=== PATIENT | female | born 1995 ===

== ENCOUNTER 2020-03-27 17:15 | Inpatient (IN) | payer BC ==
[2020-03-27 18:15] VITALS: BMI 41.7
--- NOTE | 2020-03-27 18:40 | HP ---
Past Medical History - Primary Care Physician PCP:: Guy Muniz - Admission Chief Complaint: Induction of labor for post dates History of Present Illness: 25 yo LMP 06/22/2019, EDC by dates 03/29/2020, by sono 03/17/2020 41 weeks send for Induction of labor Dr Callejas/dr muniz History Source: Patient Limitations to Obtaining History: No Limitations (Obesity) - Past Medical History ...: 3 ...Para: 0 ...Term: 0 ...: 0 ...Spon : 1 ...Induced : 1 ...Living Children: 0 ...Multiple Gestation: 0 ...LMP: 06/22/19 ... Weeks Gestation by Dates: 39.5 ...EDC by Dates: 03/29/20 ...EDC by Sono: 03/17/20 - Past Surgical History Past Surgical History: Yes: None Hx Myomectomy: No Hx Transabdominal Cerclage: No - Smoking History Smoking history: Former smoker Have you smoked in the past 12 months: Yes Aproximately how many cigarettes per day: 20 If you are a former smoker, when did you quit?: june - Alcohol/Substance Use Hx Alcohol Use: No History of Substance Use: reports: None - Social History Usual Living Arrangement: Yes: With Spouse History of Recent Travel: No Home Medications - Allergies Allergies/Adverse Reactions: Allergies Allergy/AdvReac Type Severity Reaction Status Date / Time azithromycin [From Zithromax] Allergy Severe Difficulty Verified 03/27/20 18:15 Breathing - Home Medications Home Medications: Ambulatory Orders Vitamins (Sjr) - 1 tab PO DAILY 03/27/20 Family Medical History Family Hx Cardiac Disorders: Mother Review of Systems - Review of Systems Constitutional: reports: No Symptoms Eyes: reports: No Symptoms HENT: reports: No Symptoms Neck: reports: No Symptoms Cardiovascular: reports: No Symptoms Respiratory: reports: No Symptoms Gastrointestinal: reports: No Symptoms Genitourinary: reports: No Symptoms Breasts: reports: No Symptoms Reported Musculoskeletal: reports: No Symptoms Integumentary: reports: No Symptoms Neurological: reports: No Symptoms Endocrine: reports: No Symptoms Hematology/Lymphatic: reports: No Symptoms Psychiatric: reports: No Symptoms Physical Exam - Maternity Vital Signs: Vital Signs Temperature 98.1 F 08/25/20 17:53 Pulse Rate 90 03/27/20 17:53 Respiratory Rate 18 03/27/20 17:53 Blood Pressure 126/74 03/27/20 17:53 O2 Sat by Pulse Oximetry (%) Constitutional: Yes: Well Nourished, No Distress, Obese Eyes: Yes: WNL HENT: Yes: WNL Neck: Yes: WNL Cardiovascular: Yes: WNL Breast(s): Yes: WNL - Abdominal Exam/OB Fundal Height: 40 Number of Fetuses: Single Presentation: Vertex Contractions: Yes Regularity: Irritability Intensity: Unaware Monitor Mode: External Heart Rate (range): 140 Heart Rate Location: [facility] Category: I Accelerations: Uniform Decelerations: None - Vaginal Exam/OB Vaginal Bleeding: No Dilatation (cm): 2 Effacement (%): 90 Amniotic Membrane Status: Intact Station: -1 - Physical Exam Musculoskeletal: Yes: WNL Extremities: Yes: WNL Integumentary: Yes: WNL Deep Tendon Reflex Grade: Normal +2 ...Motor Strength: WNL Psychiatric: Yes: WNL Hemorrhage Risk Assessment - Risk Factors Risk Score: 1 Risk Level: Medium Risk Problem List - Problems (1) Post-dates Code(s): O48.0 - POST-TERM (2) 41 weeks gestation of Code(s): Z3A.41 - 41 WEEKS GESTATION OF (3) Obese Code(s): E66.9 - OBESITY, UNSPECIFIED Assessment/Plan Admit to LD Pitocin augmentation
[2020-03-27 18:53] LABS: EPI CELLS >36 /uL (0-25.1); HYALINE CASTS 1 /uL (0-3.1); PH,URINE 5.5 (5.0-8.0); URINE APPEARANCE CLEAR; URINE BACTERIA 495 /uL (0-1359); URINE BILIRUBIN NEGATIVE (NEGATIVE); URINE COLOR YELLOW; URINE GLUCOSE (UA) NEGATIVE (NEGATIVE); URINE KETONE NEGATIVE (NEGATIVE); URINE LEUK ESTERASE TRACE (NEGATIVE); URINE NITRITE NEGATIVE (NEGATIVE); URINE PROTEIN NEGATIVE (NEGATIVE); URINE RBC 4 /uL (0-23.9); URINE UROBILINOGEN 0.2 mg/dL (0.2-1.0); URINE WBC 45 /uL (0-25.8)
[2020-03-27 20:42] LABS: BASO % 0.2 % (0-2.0); EOS % 0.5 % (0-4.5); HEMATOCRIT 33.3 % (32.4-45.2); HEMOGLOBIN 10.9 GM/dL (10.7-15.3); LYMPH % 24.5 % (8-40); MCH 28.3 pg (25.7-33.7); MCHC 32.8 g/dl (32.0-36.0); MEAN CELL VOLUME 86.1 fl (80-96); MONO % 9.5 % (3.8-10.2); NEUT % 65.3 % (42.8-82.8); PLATELET COUNT 265 K/MM3 (134-434); RBC 3.86 M/mm3 (3.60-5.2); RDW 15.3 % (11.6-15.6); WHITE BLOOD COUNT 12.1 K/mm3 (4.0-10.0)
[2020-03-27 20:50] LABS: INR 0.97 (0.83-1.09); PROTHROMBIN TIME (PATIENT) 11.4 SEC (9.7-13.0)
[2020-03-27 20:53] LABS: ACTIVATED PTT 24.3 SECONDS (25.2-36.5)
[2020-03-27 20:54] LABS: GAMMA GLUTAMYL TRANSPEPTIDASE 7 U/L (5-85)
[2020-03-27 20:57] LABS: BLOOD UREA NITROGEN 10.9 mg/dL (7-18); CALCIUM 8.8 mg/dL (8.5-10.1); CREATININE 0.6 mg/dL (0.55-1.3); POTASSIUM 4.2 mmol/L (3.5-5.1); URIC ACID 4.7 mg/dL (2.6-7.2)
[2020-03-27 20:58] LABS: SGOT/AST 12 U/L (15-37); SGPT/ALT 13 U/L (13-61)
[2020-03-27] MEDS ORDERED: PROMETHAZINE HCL 25 MG/1 ML VIAL IVPB ONE (21:13)
[2020-03-27] MEDS ORDERED: BUTORPHANOL TARTRATE 1 MG/ML VIAL IVPB ONE (21:13)
[2020-03-28] MEDS: ELECTROLYTE-148 SOLN 1,000 ML IV SCH ×2 (00:45→07:30)
[2020-03-28] MEDS: OXYTOCIN 30 UNITS in 0.9% NS 30 UNIT/500 ML INFUS.BAG IVPB SCH (01:00)
[2020-03-28] MEDS ORDERED: OXYTOCIN 30 UNITS in 0.9% NS 30 UNIT/500 ML INFUS.BAG IVPB ONE (01:17)
[2020-03-28] MEDS ORDERED: ACETAMINOPHEN 325 MG TABLET (FP) ONE (04:28)
[2020-03-28] MEDS ORDERED: ACETAMINOPHEN 325 MG TABLET (FP) PO ONE (04:30)
--- NOTE | 2020-03-28 11:41 | PN ---
Progress Note (short form) - Note Progress Note: 25 year old P0 undergoing IOL due to postdates 41w GBS negative Pitocin VSS VE /-2, vertex, intact Cat 1 tracing Irregular contractions Plan Cervical balloon placed Continue with Pitocin Reassess
[2020-03-28] MEDS ORDERED: PCA PUMP NR ONE ×2 (12:51→19:11)
[2020-03-28] MEDS ORDERED: FENTANYL/BUPIVACAINE/NS/PF - PCEA - 50 ML DISP.SYRIN EP ONE ×4 (12:51→22:00)
--- NOTE | 2020-03-28 14:28 | PN ---
Progress Note (short form) - Note Progress Note: IOL postdates Pitocin s/p epidural feels pressure cervical balloon out VSS VE 5/80/-2, AROM clear fluid Cat 1 tracing Contractions q 2-3 min Continue with Pitocin Anticipate vag delivery
[2020-03-28] MEDS ORDERED: NALOXONE HCL 0.4 MG/ML VIAL IVPUSH PRN (14:55)
[2020-03-28] MEDS ORDERED: FENTANYL/BUPIVACAINE/NS/PF - PCEA - 50 ML DISP.SYRIN EP SCH (15:00)
[2020-03-28] MEDS ORDERED: BUPIVACAINE HCL/PF 0.25% (2.5MG/ML) 10 ML VIAL ONE ×2 (17:31→18:42)
--- NOTE | 2020-03-28 17:45 | PN ---
Progress Note (short form) - Note Progress Note: IOL Pitocin Epidural GBS neg EFW 8.5 lbs Feels pressure VSS VE 6/80/-2 at 1645 Cat 1 tracing Contractions q 2-3 min Continue IOL
--- NOTE | 2020-03-28 21:16 | PN ---
Progress Note (short form) - Note Progress Note: s/p epidural, c/o pain and pressure thinks there is no relief does not want the catheter to be replaced s/p epidural bolus VSS VE /-2 Cat 1 tracing with early decels Contractions q 2-3 min Patient unsure if she would like to continue trial of labor Close monitoring Reassess
--- NOTE | 2020-03-29 01:16 | PN ---
Progress Note (short form) - Note Progress Note: Arrest of dilation at 8cm Cat 1 tracing Recommend delivery and this time Patient agrees and signs written consent Risks and benefits discussed with patient and partner Anesthesia and neonatology made aware
[2020-03-29] MEDS ORDERED: morphine SULFATE/PF 0.5 MG/ML (2cc Syringe - QUVA) ONE (01:45)
[2020-03-29] MEDS ORDERED: PHENYLEPHRINE HCL 10 MG/1 ML SINGLE DOSE VIAL ONE (01:45)
[2020-03-29] MEDS ORDERED: OXYTOCIN 10 UNITS/ML VIAL ONE ×4 (02:50→02:51)
[2020-03-29] MEDS ORDERED: ceFAZolin SODIUM 1 GM VIAL ONE ×2 (02:51)
--- NOTE | 2020-03-29 03:05 | OP ---
Operative Note - Note: Operative Date: 03/29/20 Pre-Operative Diagnosis: arrest of dilation Operation: primary delivery Findings: Male infant 9/9 YESSICA position Post-Operative Diagnosis: Same as Pre-op Surgeon: Leila Corral Structural Steel Engineer: Yola Martínez Anesthesiologist/MOLASSES FEED MIXER: Mitch Leo Anesthesia: Spinal Estimated Blood Loss (mls): 600
[2020-03-29] MEDS ORDERED: ONDANSETRON 4 MG/2 ML VIAL IVPUSH PRN (03:10)
[2020-03-29] MEDS ORDERED: METHYLERGONOVINE MALEATE 0.2 MG/1 ML AMP IM PRN (03:21)
[2020-03-29] MEDS ORDERED: OXYTOCIN 20 UNITS in 0.9% NS 20 UNIT/1,000 ML INFUS.BAG IV ONE (04:47)
[2020-03-29] MEDS: ELECTROLYTE-148 SOLN 1,000 ML IV SCH ×2 (05:26→20:09)
[2020-03-29] MEDS: OXYTOCIN 30 UNITS in 0.9% NS 30 UNIT/500 ML INFUS.BAG IVPB SCH (05:26)
[2020-03-29] MEDS: IBUPROFEN 800 MG/8 ML IJ IVPB PRN ×3 (06:00→23:28)
[2020-03-29 06:08] LABS: CORD BASE EXCESS -5.6 mmol/L (0-2); CORD HCO3 20.4 mmHg (20-29); CORD pH 7.305 (7.14-7.44)
[2020-03-29] MEDS: ACETAMINOPHEN 325 MG TABLET (FP) PO PRN (11:22)
[2020-03-29] MEDS: SIMETHICONE 80 MG TAB.CHEW (FP) PO PRN (20:09)
[2020-03-30] MEDS ORDERED: BISACODYL 10 MG SUPP.RECT RC PRN (03:21)
[2020-03-30] MEDS: IBUPROFEN 600 MG TABLET (FP) PO PRN ×3 (05:26→21:33)
[2020-03-30] MEDS: ACETAMINOPHEN 325 MG TABLET (FP) PO PRN ×3 (05:26→21:33)
[2020-03-30] MEDS: SIMETHICONE 80 MG TAB.CHEW (FP) PO PRN ×2 (05:27→14:33)
[2020-03-30 08:51] LABS: BASO % 0.2 % (0-2.0); EOS % 1.2 % (0-4.5); HEMATOCRIT 27.2 % (32.4-45.2); LYMPH % 12.8 % (8-40); MCH 28.6 pg (25.7-33.7); MCHC 33.1 g/dl (32.0-36.0); MEAN CELL VOLUME 86.5 fl (80-96); MEAN PLT VOLUME 8.7 fl (7.5-11.1); MONO % 7.1 % (3.8-10.2); NEUT % 78.7 % (42.8-82.8); PLATELET COUNT 210 K/MM3 (134-434); RBC 3.14 M/mm3 (3.60-5.2); RDW 15.6 % (11.6-15.6)
[2020-03-30] MEDS: ENOXAPARIN NA (PORCINE) 40 MG/0.4 ML DISP.SYRIN SQ SCH (09:56)
--- NOTE | 2020-03-30 10:55 | PN ---
Progress Note (short form) - Note Progress Note: Anesthesia Post Note: s/p c section under spinal anesthesia post op day one, intrathecal duramorph for post op pain control patient is doing well, pain under control, minimal itching, no nausea or vomiting, no adverse anesthetic complications. dept of anesthesiology will sign off on care at this time
--- NOTE | 2020-03-30 11:50 | PN ---
Post Progress Note Post Day: 1 Type of Delivery: Primary C/S Vital Signs: Vital Signs Temperature 99.2 F 03/30/20 02:00 Pulse Rate 110 H 03/30/20 02:00 Respiratory Rate 20 03/30/20 05:58 Blood Pressure 137/68 03/30/20 02:00 O2 Sat by Pulse Oximetry (%) 99 03/30/20 02:00 Breast Exam: Yes: Soft Uterus: Yes: Fundus Firm Incision: Yes: Dressing dry and intact Abdomen/GI: Yes: Abdomen soft Lochia: Yes: Rubra Lochia, amount: Small Activity: Ambulating - Labs Labs: CBC WBC 12.0 K/mm3 (4.0-10.0) H 03/30/20 08:10 RBC 3.14 M/mm3 (3.60-5.2) L 03/30/20 08:10 Hgb 9.0 GM/dL (10.7-15.3) L 03/30/20 08:10 Hct 27.2 % (32.4-45.2) L D 03/30/20 08:10 MCV 86.5 fl (80-96) 03/30/20 08:10 MCH 28.6 pg (25.7-33.7) 03/30/20 08:10 MCHC 33.1 g/dl (32.0-36.0) 03/30/20 08:10 RDW 15.6 % (11.6-15.6) 03/30/20 08:10 Plt Count 210 K/MM3 (134-434) D 03/30/20 08:10 MPV 8.7 fl (7.5-11.1) 03/30/20 08:10 Absolute Neuts (auto) 9.4 K/mm3 (1.5-8.0) H 03/30/20 08:10 Neutrophils % 78.7 % (42.8-82.8) D 03/30/20 08:10 Lymphocytes % 12.8 % (8-40) D 03/30/20 08:10 Monocytes % 7.1 % (3.8-10.2) 03/30/20 08:10 Eosinophils % 1.2 % (0-4.5) D 03/30/20 08:10 Basophils % 0.2 % (0-2.0) 03/30/20 08:10 Nucleated RBC % 0 % (0-0) 03/30/20 08:10 Haptoglobin 198 mg/dL (33-278) 03/27/20 20:02 Assessment/Plan s/p PLTCS due to arrest, POD #1 hemodynamically stable monitor vitals pain management regular diet ambulation encouraged abdominal dressing to be removed in AM consider discharge home in 1-2 days
[2020-03-30] MEDS: SENNOSIDES/DOCUSATE COMBO (SENNA PLUS) TABLET (UD) PO PRN (21:33)
[2020-03-31] MEDS: IBUPROFEN 600 MG TABLET (FP) PO PRN ×3 (08:57→22:05)
[2020-03-31] MEDS: SIMETHICONE 80 MG TAB.CHEW (FP) PO PRN ×3 (08:58→22:05)
[2020-03-31] MEDS: ACETAMINOPHEN 325 MG TABLET (FP) PO PRN ×2 (08:58→18:08)
[2020-03-31] MEDS: ENOXAPARIN NA (PORCINE) 40 MG/0.4 ML DISP.SYRIN SQ SCH (09:48)
--- NOTE | 2020-03-31 12:59 | PN ---
Post Progress Note Post Day: 2 Type of Delivery: Primary C/S Vital Signs: Vital Signs Temperature 97.5 F L 03/30/20 22:00 Pulse Rate 93 H 03/30/20 22:00 Respiratory Rate 18 03/30/20 22:00 Blood Pressure 118/76 03/30/20 22:00 O2 Sat by Pulse Oximetry (%) 97 03/30/20 22:00 Breast Exam: Yes: Soft Uterus: Yes: Fundus Firm, Fundus below umbilicus, Non-tender Incision: Yes: Dressing dry and intact Abdomen/GI: Yes: Abdomen soft, Tolerating PO Lochia: Yes: Rubra Lochia, amount: Small - Labs Labs: CBC WBC 12.0 K/mm3 (4.0-10.0) H 03/30/20 08:10 RBC 3.14 M/mm3 (3.60-5.2) L 03/30/20 08:10 Hgb 9.0 GM/dL (10.7-15.3) L 03/30/20 08:10 Hct 27.2 % (32.4-45.2) L D 03/30/20 08:10 MCV 86.5 fl (80-96) 03/30/20 08:10 MCH 28.6 pg (25.7-33.7) 03/30/20 08:10 MCHC 33.1 g/dl (32.0-36.0) 03/30/20 08:10 RDW 15.6 % (11.6-15.6) 03/30/20 08:10 Plt Count 210 K/MM3 (134-434) D 03/30/20 08:10 MPV 8.7 fl (7.5-11.1) 03/30/20 08:10 Absolute Neuts (auto) 9.4 K/mm3 (1.5-8.0) H 03/30/20 08:10 Neutrophils % 78.7 % (42.8-82.8) D 03/30/20 08:10 Lymphocytes % 12.8 % (8-40) D 03/30/20 08:10 Monocytes % 7.1 % (3.8-10.2) 03/30/20 08:10 Eosinophils % 1.2 % (0-4.5) D 03/30/20 08:10 Basophils % 0.2 % (0-2.0) 03/30/20 08:10 Nucleated RBC % 0 % (0-0) 03/30/20 08:10 Haptoglobin 198 mg/dL (33-278) 03/27/20 20:02 Assessment/Plan S/P delivery. pod # 2, passed flatus Continue management
[2020-03-31] MEDS: FERROUS SO4 325 MG TABLET (FP) PO SCH ×2 (17:38→22:00)
[2020-03-31] MEDS: SENNOSIDES/DOCUSATE COMBO (SENNA PLUS) TABLET (UD) PO PRN (22:04)
[2020-04-01 08:52] LABS: BASO % 0.3 % (0-2.0); HEMATOCRIT 26.6 % (32.4-45.2); LYMPH % 16.7 % (8-40); MCH 29.3 pg (25.7-33.7); MCHC 33.8 g/dl (32.0-36.0); MEAN CELL VOLUME 86.7 fl (80-96); MEAN PLT VOLUME 8.3 fl (7.5-11.1); MONO % 7.6 % (3.8-10.2); NEUT % 73.4 % (42.8-82.8); PLATELET COUNT 232 K/MM3 (134-434); RBC 3.07 M/mm3 (3.60-5.2); RDW 15.4 % (11.6-15.6)
[2020-04-01] MEDS: ACETAMINOPHEN 325 MG TABLET (FP) PO PRN (09:10)
[2020-04-01] MEDS: IBUPROFEN 600 MG TABLET (FP) PO PRN (09:11)
[2020-04-01] MEDS: ENOXAPARIN NA (PORCINE) 40 MG/0.4 ML DISP.SYRIN SQ SCH (09:12)
[2020-04-01] MEDS: SIMETHICONE 80 MG TAB.CHEW (FP) PO PRN (09:12)
[2020-04-01] MEDS: FERROUS SO4 325 MG TABLET (FP) PO SCH (10:04)
--- NOTE | 2020-04-01 10:40 | DS ---
Physical Exam-ESTATE PLANNER Vital Signs: Vital Signs Temperature 99 F 03/31/20 22:00 Pulse Rate 100 H 03/31/20 22:00 Respiratory Rate 20 03/31/20 22:00 Blood Pressure 118/63 03/31/20 22:00 O2 Sat by Pulse Oximetry (%) 97 03/31/20 22:00 Constitutional: Yes: Well Nourished Eyes: Yes: WNL HENT: Yes: WNL Neck: Yes: WNL Cardiovascular: Yes: WNL Respiratory: Yes: Regular Uterus: Yes: Firm ....Post : Yes: Uterus non-tender Wound/Incision: Yes: Dressing Removed (abdominal rash; Benadryl 25 mg PRN) Labs: CBC, BMP 04/01/20 08:15 03/27/20 20:02 Delivery - Delivery Section: Primary Type of Anesthesia: Epidural, Spinal Episiotomy/Laceration: None EBL (cc): 500 Delivery, Single - Stages of Labor Date 1st Stage Initiatied: 03/29/20 Time 1st Stage Initiated: 00:00 Date of Delivery: 03/29/20 Time of Delivery: 02:23 Time Placenta Delivered: 02:24 - Condition of Supervising Editor News Reel/Plant Puller Present: Yes Name: Alexandria Osorio Infant Gender: Male Weight: 3.912 kg Position: Left, OA Total Hours ROM (Hrs/Mins): 12/1 - 1 Minute Total Score: 8 5 Minutes Total Score: 9 - Tigrett Feeding Plan Initial Plan: Exclusive throughout hospitalization Remarks - Remarks Remarks: s/p c section for FTP; abdominal rash; anemia Discharge Summary Reason For Visit: INDUCTION Current Active Problems 41 weeks gestation of (Acute) Obese (Acute) Post-dates (Acute) Procedures: Principal: c section Hospital Course: anemia; abdominal rash Plan of Treatment: home Condition: Good - Instructions Diet, Activity, Other Instructions: regular Disposition: HOME - Home Medications Comprehensive Discharge Medication List: Ambulatory Orders Vitamins (Sjr) - 1 tab PO DAILY 03/27/20
[2020-04-01 15:18] VITALS: BP 114/77; PULSE 83; TEMP 97.8
--- NOTE | 2020-04-02 16:32 | PATH ---
Surgical Pathology Report Patient Name: MARINA CIFUENTES [facility]. Rec. #: [id number] /Age/Gender: 1995 (Age: 25) / F Account: [id number] Location: [facility] OBS/ASSISTANT REFINERY OPERATOR Taken: 03/29/2020 Received: 03/29/2020 Reported: 04/02/2020 Physicians: Leila Corral M.D. Specimen(s) Received PLACENTA Clinical History 40 weeks primary Final Diagnosis PLACENTA: THIRD TRIMESTER PLACENTA. TRIVASCULAR CORD. MEMBRANES WITH NO DIAGNOSTIC ABNORMALITIES. Electronically Signed King Sanz M.D. Gross Description The specimen is received fresh labeled placenta and is a 556 gram, 19 x16 x 2.5cm. placenta with attached membranes and umbilical cord. The attached membranes are glistening, translucent, and insert marginally. The umbilical cord measures 28 cm. in length and averages 1.5 cm. in diameter. A separate portion of umbilical cord measuring 23 cm in length is also present in the container. The cord inserts centrally, 5 centimeter to the nearest margin. No true knots or strictures are identified. Cut surface of the umbilical cord reveals 3 vessels. Sectioning reveals red-brown, spongy parenchyma. No lesions are identified. Seam Stayer sections are submitted in three cassettes as follows: 1- membrane rolls and umbilical cord; 2-3- full thickness sections of placenta KWS/03/29/2020 sulki03/29/2020
--- NOTE | 2020-04-04 12:10 | OP ---
DATE OF OPERATION: 03/29/2020 PREOPERATIVE DIAGNOSIS: Arrest of dilation. OPERATION: Primary section. FINDINGS: Male , 9, 9; left occiput anterior position. POSTOPERATIVE DIAGNOSIS: Arrest of dilation. SURGEON: Leila Corral MD REVERSE ENGINEER: Yola Martínez MD ANESTHESIOLOGIST: Mitch Leo MD ANESTHESIA: Spinal. ESTIMATED BLOOD LOSS: 600 mL PROCEDURE: After diagnosing arrest of labor at 8 cm, recommendation for was done to the patient. The patient signed informed consent, was taken to the operating room. Due to epidural not working properly, the epidural catheter was removed by the anesthesiologist and spinal anesthesia was initiated. The patient was then placed in dorsal supine position with a leftward tilt. The patient was prepped and draped in normal sterile fashion. A Pfannenstiel skin incision was performed. The incision was then carried down with the Bovie to the fascia. The fascia was incised at the midline and it was extended bilaterally with the Bovie. Two straight Naseem clamps were used to tent up the lower portion of the fascia and the underlying rectus muscle was dissected off bluntly and sharply. The same procedure was performed in the upper portion of the fascia. The rectus muscle was then at the midline. Blunt entry into the peritoneal cavity was performed. The bladder blade was inserted and the lower uterine segment was identified. A lower uterine segment incision was performed with a scalpel and it was extended bilaterally bluntly. The was then delivered atraumatically. The cord was cut and clamped and the was handed to the director health. The placenta was then delivered manually. The uterus was then delivered through the abdominal incision. Extensive uterine massage was performed due to atony. The uterus was then firm without further medication. The inside of the uterus was cleared of all clots and membranes with dry laparotomy sponges. C-clamps and Allis clamps were placed in the uterine incision and the uterine incision was then repaired with 1-0 Vicryl suture in running locked fashion. Additional [id number] sutures were placed to obtain hemostasis. The uterus was then returned to the abdominal cavity. The gutters were cleared of all clots with moist laparotomy sponges. The incision was then reinspected and found to be hemostatic. The peritoneum was then identified and it was repaired with 2-0 chromic suture in running fashion. The fascia was then identified and repaired with 1-0 Vicryl suture in running fashion as well. Irrigation was performed of the subcutaneous tissue. The subcutaneous tissue was then approximated with plain gut suture and the skin was then closed subcuticularly with 3-0 Vicryl suture. The patient tolerated well the procedure. The count was correct x2. The patient was then transferred to recovery room in stable condition. MD FACUNDO GARDINER/[id number]
== END 2020-04-01 14:00 | disposition home or self-care (01) | DRG 788 ==
LOC: JLDR 17:15 → J3W 03-29 05:06
PROVIDERS: ADMIT Obstetrics & Gynecology; ATTEND Obstetrics & Gynecology
PROC: 0U7C7ZZ Dilation of Cervix, Via Natural or Artificial Opening (ICD-10-PCS; 2020-03-28)
PROC: 10D00Z1 Extraction of Products of Conception, Low, Open Approach (ICD-10-PCS; principal; 2020-03-29)
DX: O82 Encounter for cesarean delivery without indication (principal); O66.40 Failed trial of labor, unspecified; O62.0 Primary inadequate contractions; O48.0 Post-term pregnancy; O99.214 Obesity complicating childbirth; E66.01 Morbid (severe) obesity due to excess calories; F17.211 Nicotine dependence, cigarettes, in remission; Z3A.41 41 weeks gestation of pregnancy; Z37.0 Single live birth
CPT/HCPCS: 36415; 36600; 80048; 81003; 82803; 82977; 83010; 84450; 84460; 84550; 85025; 85610; 85730; 86780; 86850; 86900; 86901; 88307-TC; U0003